=== PATIENT | male | born 1980 | race Caucasian/White ===

== ENCOUNTER 2017-03-26 20:17 | Emergency (ER) | payer SELFPAY ==
[~2017-03-26] VITALS: Ht 195.6 cm; Wt 93.2 kg
[2017-03-26] MEDS ORDERED: ACETAMINOPHEN 500 MG TABLET PO ONE (21:15)
[2017-03-26 21:46] LABS: INFLUENZA TYPE B NEGATIVE FOR TYPE B (NEGATIVE)
[2017-03-26 21:50] VITALS: BP 121/79
== END 2017-03-26 22:08 | disposition home or self-care (01) ==
LOC: EMS 20:18
DX: B34.9 Viral infection, unspecified (principal)
CPT/HCPCS: 87804; 99284